=== PATIENT | female | born 1995 | race African-American/Black ===

== ENCOUNTER 2016-07-14 19:22 | Observation (INO) | payer BC, MEDICAID ==
[~2016-07-14] VITALS: Ht 162.6 cm; Wt 106.0 kg
[2016-07-14 19:55] LABS: DAU SCREEN DISCLAIMER
[2016-07-14 20:00] LABS: BLOOD UREA NITROGEN 9 mg/dL (7-18)
[2016-07-14 20:03] LABS: ACETAMINOPHEN < 2 mcg/mL (10-30)
[2016-07-14] MEDS ORDERED: ACETAMINOPHEN 325 MG TABLET PO PRN (21:30)
[2016-07-14] MEDS ORDERED: ZIPRASIDONE 20MG CAPSULE PO PRN (21:30)
[2016-07-14] MEDS ORDERED: DOCUSATE 100 MG CAPSULE PO PRN (21:30)
[2016-07-14] MEDS ORDERED: ZIPRASIDONE 20 MG INJ IM PRN (21:30)
[2016-07-14] MEDS ORDERED: ZIPR60CA2 PO (21:35)
[2016-07-14] MEDS ORDERED: GABA600T PO (21:36)
[2016-07-14] MEDS ORDERED: DULO60CA7 PO (21:37)
[2016-07-14] MEDS ORDERED: MELO-184 PO (21:38)
[2016-07-14 22:21] VITALS: BP 122/88
[2016-07-15 08:02] VITALS: BP 139/88
[2016-07-15] MEDS: GABAPENTIN 300 MG CAPSULE PO SCH ×2 (09:00→23:15)
[2016-07-15] MEDS: DULOXETINE 30 MG CAPSULE.DR PO SCH (09:00)
[2016-07-15 18:11] LABS: HCG UR OBC PASS
[2016-07-15 20:00] VITALS: BP 119/65
[2016-07-15] MEDS: ZIPRASIDONE 20MG CAPSULE PO SCH (21:00)
[2016-07-15] MEDS: MELOXICAM 15 MG TABLET PO SCH (23:16)
[2016-07-16 08:18] VITALS: BP 117/81
[2016-07-16] MEDS: GABAPENTIN 300 MG CAPSULE PO SCH ×2 (08:54→21:13)
[2016-07-16] MEDS: DULOXETINE 30 MG CAPSULE.DR PO SCH (08:55)
[2016-07-16 19:48] VITALS: BP 126/89
[2016-07-16] MEDS: MELOXICAM 15 MG TABLET PO SCH (21:13)
[2016-07-16] MEDS: ZIPRASIDONE 20MG CAPSULE PO SCH (21:13)
[2016-07-17] MEDS: GABAPENTIN 300 MG CAPSULE PO SCH (08:08)
[2016-07-17] MEDS: DULOXETINE 30 MG CAPSULE.DR PO SCH (08:08)
[2016-07-17 08:55] VITALS: BP 116/70
== END 2016-07-17 11:06 ==
LOC: ED 19:49 → EDIP 21:15 → 3E 22:18
PROVIDERS: ADMIT Hospitalist; ATTEND Hospitalist
DX: R45.851 Suicidal ideations (principal); F31.9 Bipolar disorder, unspecified; F60.3 Borderline personality disorder; F12.10 Cannabis abuse, uncomplicated
CPT/HCPCS: 36415; 80048; 80307; 80329; 81025; 82040; 85025; 96372; 99285; G0378; J3486; G0480

== ENCOUNTER 2016-10-30 13:39 | Emergency (ER) | payer BC, MEDICAID ==
[~2016-10-30] VITALS: Ht 162.6 cm; Wt 116.9 kg
[~2016-10-30 13:39] MED LIST: DULO60CA7 PO; GABA600T PO; MELO-184 PO; ZIPR60CA2 PO
[2016-10-30] MEDS ORDERED: GABA800T PO (13:52)
[2016-10-30] MEDS ORDERED: HYDR50CA PO (13:52)
[2016-10-30 14:29] VITALS: BP 107/76
== END 2016-10-30 15:03 | disposition home or self-care (01) ==
LOC: ED 14:39
DX: R55 Syncope and collapse (principal)
CPT/HCPCS: 99283

== ENCOUNTER → 2016-11-17 | Outpatient (CLI) | payer BC, MEDICAID ==
[~2016-11-17] MED LIST changes: +GABA800T PO; +HYDR50CA PO
== END | disposition home or self-care (01) ==
LOC: CFH 15:47
PROVIDERS: ATTEND Family Medicine
DX: Z30.431 Encounter for routine checking of intrauterine contraceptive device (principal); S09.8XXA Other specified injuries of head, initial encounter; X58.XXXA Exposure to other specified factors, initial encounter; Y93.89 Activity, other specified; Y92.89 Other specified places as the place of occurrence of the external cause; Y99.8 Other external cause status
CPT/HCPCS: 70150

== ENCOUNTER → 2018-10-06 | Outpatient (CLI) | payer OTHER, MEDICARE ==
[~2018-10-06] MED LIST changes: -MELO-184 PO; +MELO15TA24 PO
== END | disposition home or self-care (01) ==
LOC: CFH 09:23
PROVIDERS: ATTEND Family Medicine
DX: M25.851 Other specified joint disorders, right hip (principal); M25.852 Other specified joint disorders, left hip
CPT/HCPCS: 72110; 73523

== ENCOUNTER 2019-02-28 14:31 | Outpatient (CLI) | payer OTHER, MEDICARE | END 2019-02-28 23:59 | disposition home or self-care (01) | LOC: CFH 14:31 | PROVIDERS: ATTEND Family Medicine | DX: M25.512 Pain in left shoulder (principal) ==

== ENCOUNTER 2019-04-20 11:11 | Outpatient (CLI) | payer OTHER, MEDICARE | END 2019-04-20 23:59 | disposition home or self-care (01) | LOC: CFH 11:11 | PROVIDERS: ATTEND Family Medicine | DX: R07.81 Pleurodynia (principal) | CPT/HCPCS: 71111 ==

== ENCOUNTER → 2019-06-01 | Outpatient (CLI) | payer OTHER, MEDICARE | END | disposition home or self-care (01) | LOC: CFH 12:37 | PROVIDERS: ATTEND Family Medicine | DX: N64.52 Nipple discharge (principal); N64.4 Mastodynia | CPT/HCPCS: 76642 ==

== ENCOUNTER → 2020-07-18 | Outpatient (CLI) | payer OTHER, MEDICARE | END | disposition home or self-care (01) | LOC: RAD 11:39 | PROVIDERS: ATTEND Student in an Organized Health Care Education/Training Program | DX: K21.9 Gastro-esophageal reflux disease without esophagitis (principal) | CPT/HCPCS: 74220 ==